=== PATIENT | female | born 1990 | race Two or more races ===

== ENCOUNTER 2024-06-14 17:52 | Emergency (ER) | payer MEDICAID, SELFPAY ==
[2024-06-14 18:29] VITALS: BP 142/85; PULSE 100; RESP 16; TEMP 36.8; O2SAT 97; BMI 37.9
--- NOTE | 2024-06-14 18:32 | XR_ITS ---
Examination: CT abdomen with intravenous contrast CT pelvis with intravenous contrast 2-D coronal reconstructions 2-D sagittal reconstructions Date and time of exam:June 14, 20242021 hrs. Indications: Onset right lower abdominal pain today. CTDI: vol (mGy) 11.6 DLP: (mGycm) 632 632 Technique: Multiple axial sections of the abdomen and pelvis have been obtained. 64 slice high-resolution scanner used. 3 mm axial sections have been obtained, post intravenous injection 60 cc [id number] 2-D sagittal, coronal reconstructions obtained. Low dose protocols were performed. One or more of the following dose reduction techniques were used; automated exposure control, adjustment of the mA and/or KV according to patient size, use of iterative reconstruction technique. Findings: 18 mm nodule retroareolar region right breast image 1 No focal liver or splenic lesion Suspicious for gallbladder sludge versus small stones No pancreatic mass 8 mm upper pole right renal calculus, no hydronephrosis or ureteral calculi Normal appendix Aorta normal size Septated large right adnexal cyst, 5.6 cm Bladder intact Intact osseous structures Impression: Recommend right breast sonography to assess 18 mm nodule retroareolar region right breast 8 mm nonobstructing right renal calculus Normal appendix Recommend pelvic sonography to assess septated 5.6 cm right adnexal cyst
--- NOTE | 2024-06-14 18:33 | PD.EDRME ---
Rapid Medical Screening Exam RME Arrival date/time: 06/14/24 17:52 33 yo f present to Ed for c/o of RLQ for 2 weeks I have greeted and performed a focused initial assessment of this patient. A comprehensive ED assessment and evaluation of the patient, analysis of all test results, and completion of the medical decision making process will be conducted by additional ED providers. Chief Complaint: Abdominal Pain Time Seen by Provider: 06/14/24 18:10 Vital signs: Vital Signs Temperature 98.3 F 06/14/24 18:29 Pulse Rate 100 06/14/24 18:29 Respiratory Rate 16 06/14/24 18:29 Blood Pressure 142/85 H 06/14/24 18:29 Pulse Oximetry (%) 97 06/14/24 18:29 Oxygen Delivery Method Room Air 06/14/24 18:29
--- NOTE | 2024-06-14 19:13 | PD.EDABDPN ---
ED Abdominal Pain RME/HPI General Chief Complaint: Abdominal Pain Stated complaint: RIGHT ABD PAIN FOR 2 WEEK Time seen by provider: 06/14/24 18:10 Arrival date/time: 06/14/24 17:52 Limitations: no limitations RME / HPI RME / HPI narrative: DR. TRAMMELL MAIN ED EVALUATION: 33 year old female with no past medical history presents to the Emergency Department with complaint of right lower quadrant pain onset 2 weeks. Pain is constant, worse with bending over. The patient states the pain is just present so she wanted to get it checked out. She denies any nausea vomiting diarrhea. There is no radiation of the pain. Nothing specifically makes it better. Last bowel movement in the last 24 hours. Related Data Previous Rx's ?Medication ?Instructions ?Recorded acetaminophen 500 mg capsule 1,000 mg (2 x 500 mg) PO Q6H PRN 02/23/19 fever or pain #30 caps ibuprofen 800 mg tablet 800 mg PO TID PRN pain #30 tabs 02/23/19 sulfamethoxazole 800 1 tab PO BID #14 tabs 02/23/19 mg-trimethoprim 160 mg tablet (Bactrim DS) albuterol sulfate 90 mcg/actuation 2 puff inhalation QID #18 grams 02/28/19 aerosol inhaler sodium chloride 0.65 % nasal spray 2 spray intranasal QID #60 mL 02/28/19 aerosol (Saline Nasal) Allergies Allergy/AdvReac Type Severity Reaction Status Date / Time No Known Allergies Allergy Verified 06/14/24 17:54 Review of Systems Review of Systems Systems Reviewed: All systems reviewed, normal except as documented Narrative Review of Systems: GEN: No fever, no chills, no weight loss EYES: No discharge, no visual changes, no pain HEENT: No ear pain, no congestion, no sore throat PULM: No shortness of breath, no cough, no congestion CV: No chest pain, no dyspnea on exertion, no palpitations GI: No nausea, no vomiting, no diarrhea, + right lower quadrant pain, no constipation : No frequency, no urgency and no dysuria MUSC/SKEL: No joint pain, no back pain SKIN: No rash PSYCH: No hallucinations, no depression HEME/LYMPH: No easy bleeding or bruising tendencies NEURO: No weakness, no headache Past Medical History Past Medical History CARDIAC: Negative Cardiac Disorders or Congestive Heart Failure RESPIRATORY: Negative Chronic Obstructive Pulmonary Disease (COPD) or Asthma GENITOURINARY: Negative Renal Disease ENDOCRINE: Negative Diabetes Mellitus Type 1 or Diabetes Mellitus Type 2 HEMATOLOGIC: Negative Sickle Cell Disease Social History SMOKING STATUS: Never smoker SUBSTANCE USE: does not use ALCOHOL: Never ED Exam General Limitations: Present no limitations General appearance: Present alert and in no apparent distress Head Head exam: Present atraumatic, normocephalic and normal inspection Eye Eye exam: Present normal appearance, PERRL and EOMI ENT ENT exam: Present normal exam, normal oropharynx and mucous membranes moist Neck Neck exam: Present normal inspection, full ROM and trachea midline Chest Chest inspection: Present normal inspection and symmetric chest wall rise Respiratory Respiratory exam: Present normal lung sounds bilaterally Cardiovascular Cardiovascular exam: Present regular rate, normal rhythm and normal heart sounds Abdominal Exam Abdominal exam: Present soft and normal bowel sounds Extremities Exam Extremities exam: Present normal inspection and full ROM Back Exam Back exam: Present normal inspection and full ROM Neurological Exam Neurological exam: Present alert, oriented X3 and CN II-XII intact Psychiatric Psychiatric exam: Present normal affect and normal mood Skin Skin exam: Present warm, dry, intact and normal color Course Quality Measures none Orders Category Date Time Status CT Screening NOW Care 06/14/24 18:[address] abdomen pelvis w con Stat Exams 06/14/24 18:32 Completed US pelvic complete Stat Exams 06/14/24 21:52 Completed CBC Stat Lab 06/14/24 18:57 Completed CMP [Comprehensive Metabolic Panel] Stat Lab 06/14/24 18:57 Completed HCG,Qualitative Serum Stat Lab 06/14/24 18:57 Completed UA [Urinalysis] Stat Lab 06/14/24 19:18 Completed Urine Culture Stat Lab 06/14/24 19:18 Received Ketorolac Inj [Toradol Inj] Med 06/14/24 21:52 Discontinued 30 mg IVP X1 ONE Vital Signs Vital signs: Vital Signs Temperature 98.3 F 06/14/24 18:29 Pulse Rate 100 06/14/24 18:29 Respiratory Rate 16 06/14/24 18:29 Blood Pressure 142/85 H 06/14/24 18:29 Pulse Oximetry (%) 97 06/14/24 18:29 Oxygen Delivery Method Room Air 06/14/24 18:29 Abdominal Pain MDM MDM Narrative MDM Narrative:: I, Mary Pulido am scribing for and in the presence of Dr. Trammell. Patient data External records reviewed:: [facility] previous records (Reviewed last ED visit dated 02/28/19, discharged with the following: Acute bronchitis with bronchospasm) Clinical information provided by:: patient Social determinants that could affect healthcare access:: none Patient has the following chronic illnesses:: Denies any PMHx, surgeries, daily medications, or known allergies. How is presenting disease/condition affected by chronic disease/condition?: no chronic disease Evaluation data The following diagnostics were reviewed and interpreted by me:: lab results and radiology exam(s) Lab and/or radiology exams considered but not ordered:: none Interpretation Summary: Procedure(s): CT abdomen pelvis w con Accession Number(s): [id number] cc: Param Sloan MD; Joesph Perry PA-C; ALEX REYES~ Examination: CT abdomen with intravenous contrast CT pelvis with intravenous contrast 2-D coronal reconstructions 2-D sagittal reconstructions Date and time of exam:June 14, 20242021 hrs. Indications: Onset right lower abdominal pain today. CTDI: vol (mGy) 11.6 DLP: (mGycm) 632 632 Technique: Multiple axial sections of the abdomen and pelvis have been obtained. 64 slice high-resolution scanner used. 3 mm axial sections have been obtained, post intravenous injection 60 cc [id number] 2-D sagittal, coronal reconstructions obtained. Low dose protocols were performed. One or more of the following dose reduction techniques were used; automated exposure control, adjustment of the mA and/or KV according to patient size, use of iterative reconstruction technique. Findings: 18 mm nodule retroareolar region right breast image 1 No focal liver or splenic lesion Suspicious for gallbladder sludge versus small stones No pancreatic mass 8 mm upper pole right renal calculus, no hydronephrosis or ureteral calculi Normal appendix Aorta normal size Septated large right adnexal cyst, 5.6 cm Bladder intact Intact osseous structures Impression: Recommend right breast sonography to assess 18 mm nodule retroareolar region right breast 8 mm nonobstructing right renal calculus Normal appendix Recommend pelvic sonography to assess septated 5.6 cm right adnexal cyst Dictated By: Param Sloan MD --------- [facility] Report Signed Patient: [facility]. Record#: [id number] Birthdate: 1990 Age/Sex: 33 / F Location: [facility] Attending Dr: Ordering Physician: Elisabeth Trammell MD Date of Service: 06/14/24 Procedure(s): US pelvic complete Accession Number(s): [id number] cc: Param Sloan MD; Elisabeth Trammell MD; ALEX REYES~ Examination: Pelvic ultrasound, transabdominal, complete Technique: Transabdominal ultrasound of the pelvis performed using grayscale imaging Date and time of exam: June 14, 2024 at 10:35 PM Indications: Onset pelvic pain beginning 2 weeks ago. Findings: Uterus 6.2 x 3.4 x 5.0 cm Endometrial stripe 10 mm Right ovary 5.2 x 4.1 x 3.9 cm arterial flow, 40 x 30 x 30 mm cyst. Left ovary 4.0 x 2.3 x 2.8 cm arterial flow Impression: No uterine mass or intrauterine gestation Right ovarian cyst 4.0 x 3.0 x 3.0 cm Dictated By: Param Sloan MD Signed By: <Electronically signed by Param Sloan MD in OV> 06/14/24 2345 Medications / Prescriptions Medications or Prescriptions considered but not ordered:: none Medication administrations:: Medication Administration History Discontinued Medications Ketorolac Tromethamine (Ketorolac Inj 30 Mg/Ml Vial) 30 mg IVP X1 ONE Stop: 06/14/24 21:53 Last Admin: 06/14/24 22:47 Dose: 30 mg Documented By: GB see above Consultations Consultation(s) initiated? (list below): No Diagnosis Differential diagnosis abdominal pain: abdominal pain, acute appendicitis, calculus of kidney, constipation, diverticulitis and pancreatitis Most likely diagnosis given after review of the tests above:: see below Admission Indicated Admission indicated?: not indicated Admission Request Was there a request for admission?: No Disposition Plan Disposition Plan: Discharge Discharge Attestation Discharge Attestation: The patient and all family members were given an opportunity to ask questions and understood the discharge instructions. Discharge instructions specifically effects, indications for sooner follow up or return to the emergency department, and the expected course of current diagnosis. Patient condition: Stable Discharge Plan Plan Patient Disposition: HOME (Self Care) Patient condition on transfer: Stable Prescriptions/Referrals Prescriptions/Med Rec: No Action albuterol sulfate 90 mcg/actuation HFA aerosol inhaler 2 puff INH QID Qty: 18 0RF sodium chloride [Saline Nasal] 0.65 % aerosol,spray 2 spray INTRANASAL QID Qty: 60 0RF ibuprofen 800 mg tablet 800 mg PO TID PRN (Reason: pain) Qty: 30 0RF sulfamethoxazole-trimethoprim [Bactrim DS] 800-160 mg tablet 1 tab PO BID Qty: 14 0RF acetaminophen 500 mg capsule 1,000 mg PO Q6H PRN (Reason: fever or pain) Qty: 30 0RF Referrals: Alex Reyes PA-C [Primary Care Provider] - In 1 week Problem List Clinical Impression: Cyst of right ovary Patient/Caregiver Discharge Instructions Education Materials: ED Ovarian Cyst Additional Instructions: Today your ultrasound shows that you have a right ovarian cyst. You will need to follow-up with your primary care in the next 3 to 5 days to see if that needs to be reevaluated and/or a referral. You can take Motrin 600 mg 3 times a day and/or Tylenol 650 mg 3 times a day as needed for pain for the next 2 to 3 days. Return sooner from your appointment, for worsening pain, or any other concerns. Print Language: Polish Stand Alone Forms: [employer] Award Info., Work/School Release, Patient Portal Info Letter
[2024-06-14 19:29] LABS: Collection Type, Urine Voided
[2024-06-14 19:39] LABS: Basophils % (Auto) 0 % (0-2.5); Eosinophils # (Auto) 0.1 Thou/mm3 (0.0-0.5); Eosinophils % (Auto) 0 % (0-10); Hematocrit 39.2 % (36.0-46.0); Hemoglobin 13.4 g/dL (12.0-16.0); Immature Granulocytes % (Auto) 1 % (0-0); Immature Granulocytes Auto 0.07 Thou/mm3 (0.00-0.00); Lymphocytes # (Auto) 1.8 Thou/mm3 (1.0-4.8); Lymphocytes % (Auto) 13 % (10-50); Mean Corpuscular HGB Conc 34.2 g/dl (31.0-37.0); Mean Corpuscular Hemoglobin 28.5 pg (25.0-35.0); Mean Corpuscular Volume 83 fL (80-100); Monocytes # (Auto) 0.5 Thou/mm3 (0.0-0.8); Monocytes % (Auto) 4 % (0-12); Neutrophils # (Auto) 11.5 Thou/mm3 (1.8-7.7); Neutrophils % (Auto) 82 % (37-80); Nucleated Red Blood Cell % 0 /100 WBC (0); Platelet Count 346 Thou/mm3 (140-440)
[2024-06-14 19:42] LABS: Bilirubin,Urine Negative (Negative); Blood,Urine Negative (Negative); Clarity,Urine Clear (Clear/Hazy); Color,Urine Colorless (Lt Yel-Yel); Glucose, Urine Negative (Negative); Ketones,Urine Negative (Negative); Leukocyte Esterase,Urine Negative (Negative); Nitrite,Urine Negative (Negative); Protein,Urine Negative (Neg - Trace); RBC,Urine 1 /hpf (0-3); Specific Gravity,Urine 1.009 (1.001-1.035); Squamous Epithelial Cell,Urine 1 /hpf (0-5); Urobilinogen,Urine Negative mg/dL (0.0-1.0); WBC,Urine 2 /hpf (0-5)
[2024-06-14 19:52] LABS: Alanine Aminotransferase 15 U/L (10-49); Albumin, Serum 5.1 gm/dL (3.5-5.0); Albumin/Globulin Ratio 1.8 (1.2-2.2); Alkaline Phosphatase 79 U/L (46-116); Anion Gap 8 (7-16); Aspartate Amino Transferase 12 U/L (0-34); BUN/Creatinine Ratio 11 Ratio (12-20); Bilirubin,Total 0.4 mg/dL (0.3-1.2); Blood Urea Nitrogen 9 mg/dL (9-23); Calcium 9.8 mg/dL (8.3-10.6); Calcium (Corrected) 9.8 mg/dL (8.5-10.1); Chloride 103 mMol/L (98-107); Creatinine (Component) 0.8 mg/dL (0.6-1.3); Globulin 2.9 gm/dL (2.3-3.5); Glucose 121 mg/dL (74-106); Osmolality,Calculated 277 (275-295); Potassium 3.4 mMol/L (3.4-5.1); Sodium 139 mMol/L (136-145); eGFR > 60 See Note
[2024-06-14 20:09] LABS: HCG,Qualitative Serum Negative
--- NOTE | 2024-06-14 21:52 | XR_ITS ---
Examination: Pelvic ultrasound, transabdominal, complete Technique: Transabdominal ultrasound of the pelvis performed using grayscale imaging Date and time of exam: June 14, 2024 at 10:35 PM Indications: Onset pelvic pain beginning 2 weeks ago. Findings: Uterus 6.2 x 3.4 x 5.0 cm Endometrial stripe 10 mm Right ovary 5.2 x 4.1 x 3.9 cm arterial flow, 40 x 30 x 30 mm cyst. Left ovary 4.0 x 2.3 x 2.8 cm arterial flow Impression: No uterine mass or intrauterine gestation Right ovarian cyst 4.0 x 3.0 x 3.0 cm
[2024-06-14] MEDS: KETOROLAC INJ 30 MG/ML VIAL IVP (22:47)
[2024-06-15 01:41] VITALS: BP 136/74; PULSE 84; RESP 17; TEMP 37.1; O2SAT 99
== END 2024-06-15 01:42 | disposition home or self-care (01) ==
PROVIDERS: Physician Assistant; Emergency Provider Emergency Medicine; PCP Physician Assistant
DX: N83.201 Unspecified ovarian cyst, right side (principal); N20.0 Calculus of kidney
CPT/HCPCS: 36415; 74177; 76856; 80053; 81001; 84703; 85025; 87086; 99285; A4649; J1885; Q9967

== ENCOUNTER → 2024-08-20 | Outpatient (CLI) | payer MEDICAID, SELFPAY ==
--- NOTE | 2024-08-20 15:00 | XR_ITS ---
Examination: Breast ultrasound complete, bilateral Date and time of exam: August 20, 2024 1552 hours INDICATIONS: CT abdomen June 14, 2024 8mm nodule retroareolar region right breast Technique: Real-time grayscale ultrasonographic imaging bilateral breasts, including all 4 quadrants as well as nipple retroareolar and axillary regions. Findings: Sonographic images right breast Retroareolar mass indistinct margins 14 x 17 x 17 mm Sonographic images left breast No cystic or solid mass IMPRESSION: BI-RADS Category 4: Suspicious for malignancy Suspicious mass retroareolar region right breast, biopsy is needed to exclude breast carcinoma, this mass is amenable to ultrasound-guided breast biopsy for diagnosis Also recommend diagnostic mammography follow-up
== END | disposition home or self-care (01) ==
PROVIDERS: PCP Physician Assistant; Referring Provider Physician Assistant; Visit Provider Physician Assistant
DX: N63.41 Unspecified lump in right breast, subareolar (principal); Z80.3 Family history of malignant neoplasm of breast
CPT/HCPCS: 76641

== ENCOUNTER → 2024-09-27 | Outpatient (CLI) | payer MEDICAID, SELFPAY ==
--- NOTE | 2024-09-27 09:30 | XR_ITS ---
Examination: Diagnostic digital mammography, bilateral Computer aided detection 3-D breast Tomosynthesis, bilateral Date and time of exam: September 27, 2024 at 1552 hours INDICATIONS: BI-RADS 4 suspicious mass retroareolar region right breast on right breast sonogram August 20, 2024 Technique: Nonmagnified MLO, CC views of the breasts to been obtained, reconstructed from 3-D Tomosynthesis images. R2 computer aided detection program utilized for evaluation of suspicious masses and/or abnormal calcifications. 3-D Tomosynthesis images obtained. Findings: The breasts are heterogeneously dense, which may obscure small masses 22 mm mass with partially indistinct margins retroareolar region right breast 22 mm focal asymmetry upper outer left breast Focus of parenchymal possible architectural distortion retroareolar region left breast Impression: BI-RADS Category 4: Suspicious for malignancy Suspicious mass retroareolar region right breast, biopsy is needed to exclude breast carcinoma, this mass is amenable to ultrasound-guided breast biopsy for diagnosis Recommend follow-up spot tomographic views of 22 mm focal asymmetry upper outer left breast and architectural distortion retroareolar region left breast.
== END | disposition home or self-care (01) ==
PROVIDERS: Referring Provider Physician Assistant; Visit Provider Physician Assistant
DX: R92.343 Mammographic extreme density, bilateral breasts (principal); N64.89 Other specified disorders of breast; N63.41 Unspecified lump in right breast, subareolar; Z80.3 Family history of malignant neoplasm of breast
CPT/HCPCS: 77062; 77066; G0279

== ENCOUNTER → 2024-11-20 | Outpatient (CLI) | payer MEDICAID, SELFPAY ==
[2024-11-19 11:38] LABS: Basophils % (Auto) 0 % (0-2.5); Eosinophils # (Auto) 0.1 Thou/mm3 (0.0-0.5); Eosinophils % (Auto) 1 % (0-10); Hemoglobin 12.9 g/dL (12.0-16.0); Immature Granulocytes % (Auto) 1 % (0-0); Immature Granulocytes Auto 0.05 Thou/mm3 (0.00-0.00); Lymphocytes # (Auto) 2.5 Thou/mm3 (1.0-4.8); Lymphocytes % (Auto) 26 % (10-50); Mean Corpuscular HGB Conc 33.9 g/dl (31.0-37.0); Mean Corpuscular Hemoglobin 28.4 pg (25.0-35.0); Mean Corpuscular Volume 84 fL (80-100); Monocytes # (Auto) 0.5 Thou/mm3 (0.0-0.8); Monocytes % (Auto) 5 % (0-12); Neutrophils # (Auto) 6.5 Thou/mm3 (1.8-7.7); Neutrophils % (Auto) 67 % (37-80); Nucleated Red Blood Cell % 0 /100 WBC (0); Platelet Count 304 Thou/mm3 (140-440); Red Blood Count 4.55 Miln/mm3 (4.00-5.20); White Blood Count 9.6 Thou/mm3 (3.6-11.0)
[2024-11-19 11:51] LABS: Partial Thromboplastin Time 28.8 Seconds (22.0-36.0); Prothrombin Time 10.8 Seconds (9.0-12.2)
[2024-11-19 11:59] LABS: HCG,Qualitative Serum Negative
--- NOTE | 2024-11-20 10:30 | XR_ITS ---
Examinations: Ultrasound-guided percutaneous breast biopsy, right breast retroareolar nodule Right breast sonography limited INDICATIONS: Right breast sonogram August 20, 2024 BI-RADS 4 suspicious mass retroareolar region right breast. Exam date and time: November 20, 2024 1106 hours. Informed consent provided. Technique: A timeout was completed verifying correct patient, procedure, site, positioning, and special equipment if applicable Informed consent provided. The patient was placed in a supine position for the breast biopsy. Sonographic images of the breast were performed for localization of the suspicious nodule The patient's breast was prepped and draped in sterile fashion. Maximum sterile barrier technique, hand hygiene, ultrasound sterile technique 1% lidocaine was used to anesthetize the skin and breast adjacent to the suspicious nodule. Utilizing ultrasonographic guidance, 8 core biopsies were obtained of the suspicious nodule utilizing an 18-gauge BioPince needle. The specimens appears satisfactory. US guided breast biopsy marker placement. Estimated blood loss 3 cc. The patient tolerated the procedure well and there were no complications. Impression: Successful ultrasound-guided percutaneous breast biopsy, right breast retroareolar nodule. Ultrasound guided breast biopsy marker placement.
== END | disposition home or self-care (01) ==
LOC: SDIM 10:11
PROVIDERS: Radiology Diagnostic Radiology; PCP Physician Assistant; Referring Provider Physician Assistant; Visit Provider Physician Assistant
DX: D24.1 Benign neoplasm of right breast (principal)
CPT/HCPCS: 19083; 36415; 84703; 85025; 85610; 85730; A4648